=== PATIENT | male | born 1960 | race Asian ===

== ENCOUNTER 2021-06-11 23:02 | Emergency (ER) | payer OTHER ==
[~2021-06-11] VITALS: Ht 177.8 cm; Wt 70.3 kg
[2021-06-11 23:51] LABS: PLATELET COUNT 197 K/uL (142-355)
[2021-06-12 00:07] LABS: PARTIAL THROMBOPLASTIN TIME 24.5 SECONDS (24.5-33.6)
[2021-06-12 03:15] VITALS: BP 128/70; TEMP 98.8
== END 2021-06-12 03:15 | disposition home or self-care (01) ==
LOC: ED 23:02
PROVIDERS: Emergency Medicine
PROC: 0HQ1XZZ Repair Face Skin, External Approach (ICD-10-PCS; principal; 2021-06-11)
DX: S01.412A Laceration without foreign body of left cheek and temporomandibular area, initial encounter (principal); S01.81XA Laceration without foreign body of other part of head, initial encounter; F10.129 Alcohol abuse with intoxication, unspecified; Y90.7 Blood alcohol level of 200-239 mg/100 ml; Y00.XXXA Assault by blunt object, initial encounter; Y92.89 Other specified places as the place of occurrence of the external cause
CPT/HCPCS: 36415; 80053; 80307; 80320; 83880; 84484; 85027; 85610; 85730; 90471; 90715; 93005; 99283